=== PATIENT | male | born 1950 | race African-American/Black ===

== ENCOUNTER 2019-06-17 18:27 | Emergency (ER) | payer MEDICARE ==
[~2019-06-17] VITALS: Ht 188 cm; Wt 72.7 kg
[2019-06-17] MEDS ORDERED: LIDOCAINE 2% 5 ML JELLY TP ONE (19:30)
[2019-06-17] MEDS ORDERED: BACITRACIN 0.9 GM PACKET OINTMENT TP ONE (20:15)
[2019-06-17 20:24] VITALS: BP 151/95
== END 2019-06-17 20:45 | disposition home or self-care (01) ==
LOC: EMS 18:33
DX: S01.111A Laceration without foreign body of right eyelid and periocular area, initial encounter (principal); W01.0XXA Fall on same level from slipping, tripping and stumbling without subsequent striking against object, initial encounter; Y93.H2 Activity, gardening and landscaping; Y92.89 Other specified places as the place of occurrence of the external cause; Y99.8 Other external cause status
CPT/HCPCS: 12011